=== PATIENT | female | born 1955 | race Caucasian/White ===

== ENCOUNTER 2022-02-07 10:22 | Inpatient (IN) | payer MEDICARE ==
[~2022-02-07] VITALS: Ht 165.1 cm; Wt 63.5 kg
[2022-02-07] VITALS (17 sets, daily range): BP systolic 104–164; BP diastolic 40–79
[2022-02-07] MEDS ORDERED: ONDANSETRON 4MG INJ IVP ONE (12:00)
[2022-02-07] MEDS ORDERED: MORPHINE 2 MG SYG IVP ONE (12:00)
[2022-02-07 12:16] LABS: BASOPHILS % (AUTO) 0.2 % (0.0-5.0); EOSINOPHILS % (AUTO) 0.7 % (0.0-8.0); HEMATOCRIT 39.1 % (36-48); LYMPHOCYTES % (AUTO) 10.9 % (21.0-51.0); MEAN CORPUSCULAR HEMOGLOBIN 30.7 pg (27.0-33.0); MEAN CORPUSCULAR HGB CONC 33.2 g/dL (32.0-36.0); MEAN CORPUSCULAR VOLUME 92.4 fL (79-99); MONOCYTES % (AUTO) 7.4 % (3.0-13.0); NEUTROPHILS % (AUTO) 80.2 % (40.0-77.0); PLATELET COUNT (AUTO) 221 K/uL (130-400); RED BLOOD CELL COUNT(AUTO) 4.23 MIL/uL (4.00-5.50); RED CELL DISTRIBUTION WIDTH 13.3 % (11.0-15.5); WHITE BLOOD COUNT (AUTO) 9.4 K/uL (4.8-10.8)
[2022-02-07 12:42] LABS: CARBON DIOXIDE 31 mmol/L (21-32); CHLORIDE 101 mmol/L (101-111); CREATININE 0.9 mg/dL (0.5-1.5); GLOMERULAR FILTR. RATE CALC 66 mL/min (>60); GLUCOSE,RANDOM 90 mg/dL (70-105); POTASSIUM 3.9 mmol/L (3.5-5.1); SODIUM SERUM 139 mmol/L (136-145); UREA NITROGEN, BLOOD 15 mg/dL (7-18)
[2022-02-07 12:47] LABS: ALANINE AMINOTRANSFERASE 23 U/L (12-78); ALBUMIN 3.8 g/dL (3.5-5.0); ASPARTATE AMINOTRANSFERASE 23 U/L (10-37); TOTAL PROTEIN, SERUM 7.5 g/dL (6.0-8.3)
[2022-02-07 12:48] LABS: CRP QUANTITATIVE < 2.00 mg/L (0.00-9.0)
[2022-02-07] MEDS: 0.9%NACL 1000ML 1,000 ML IV SCH (14:29)
[2022-02-07] MEDS ORDERED: HYDROMORPHONE 0.5 MG SYG (0.5MG/0.5ML) IVP PRN ×2 (14:30)
[2022-02-07] MEDS ORDERED: ONDANSETRON 4MG INJ IV PRN (14:30)
[2022-02-07] MEDS ORDERED: ACETAMINOPHEN 325 MG TAB PO PRN ×2 (14:30)
[2022-02-07] MEDS ORDERED: ROPIVACAINE 0.5% 5MG/ML 30ML IJ ONE (16:38)
[2022-02-07] MEDS ORDERED: SUCCINYLCHOLINE CHLORIDE 20 MG/ML 10 ML VIAL ONE (16:39)
[2022-02-07] MEDS ORDERED: FENTANYL CITRATE PF 50 MCG/1 ML 2ML VIAL ONE ×2 (16:39→17:09)
[2022-02-07] MEDS ORDERED: ROCURONIUM 10MG/1ML SYR 10 MG/ML ML ONE (16:39)
[2022-02-07] MEDS ORDERED: PROPOFOL 10 MG/ML 20ML VIAL IV ONE (16:39)
[2022-02-07] MEDS ORDERED: GLYCOPYRROLATE 1 MG/5 ML SYRINGE ONE (18:28)
[2022-02-07] MEDS ORDERED: NEOSTIGMINE 5MG/5ML SYR IV ONE (18:28)
[2022-02-07] MEDS ORDERED: MEPERIDINE-PF 25 MG/ML SYG ONE (18:56)
[2022-02-07] MEDS: FAMOTIDINE 20MG VIAL IV SCH (21:13)
[2022-02-07] MEDS: CEFAZOLIN SODIUM 1 GM VIAL IVP SCH (21:57)
[2022-02-08 00:25] VITALS: BP 103/68
[2022-02-08] MEDS: HYDROMORPHONE 0.5 MG SYG (0.5MG/0.5ML) IVP PRN ×3 (01:20→09:09)
[2022-02-08 04:04] VITALS: BP 97/50
[2022-02-08] MEDS: 0.9%NACL 1000ML 1,000 ML IV SCH (04:18)
[2022-02-08] MEDS: CEFAZOLIN SODIUM 1 GM VIAL IVP SCH (05:06)
[2022-02-08 07:30] VITALS: BP 101/61
[2022-02-08] MEDS: FAMOTIDINE 20MG VIAL IV SCH ×2 (09:09→20:30)
[2022-02-08 11:00] VITALS: BP 106/65
[2022-02-08] MEDS ORDERED: ACETAMINOPHEN WITH CODEINE 1 TAB TAB PO PRN ×2 (12:00)
[2022-02-08 14:05] LABS: HEMATOCRIT 36.4 % (36-48); MEAN CORPUSCULAR HEMOGLOBIN 31.2 pg (27.0-33.0); MEAN CORPUSCULAR VOLUME 94.5 fL (79-99); RED BLOOD CELL COUNT(AUTO) 3.85 MIL/uL (4.00-5.50); RED CELL DISTRIBUTION WIDTH 13.6 % (11.0-15.5); WHITE BLOOD COUNT (AUTO) 8.7 K/uL (4.8-10.8)
[2022-02-08 14:14] LABS: POTASSIUM 3.2 mmol/L (3.5-5.1)
[2022-02-08 16:30] VITALS: BP 103/69
[2022-02-08] MEDS ORDERED: POTASSIUM CHLORIDE 10% ELIXIR 20 MEQ/15 ML UDCUP PO PRN (18:30)
[2022-02-08] MEDS ORDERED: POTASSIUM CHLORIDE 20MEQ/100ML 100 ML IV PRN (18:30)
[2022-02-08] MEDS ORDERED: LIDOCAINE HCL-MPF 1% 2ML VIAL IV PRN (18:30)
[2022-02-08] MEDS ORDERED: ALEN70TA80 PO (20:29)
[2022-02-08] MEDS ORDERED: LEVO75TA10 PO (20:29)
[2022-02-08] MEDS ORDERED: LEVO50TA11 PO (20:29)
[2022-02-08] MEDS: KCL 20 MEQ ERTAB PO PRN ×2 (20:30→21:17)
[2022-02-08 20:55] VITALS: BP 103/77
[2022-02-08] MEDS: HYDROMORPHONE 1 MG INJ IVP PRN (21:17)
[2022-02-09 00:45] VITALS: BP 122/71
[2022-02-09] MEDS: HYDROMORPHONE 1 MG INJ IVP PRN (01:48)
[2022-02-09 04:05] VITALS: BP 132/73
[2022-02-09] MEDS: LACTULOSE 20 GM/30 ML UDCUP PO PRN ×2 (06:09→09:12)
[2022-02-09 06:24] LABS: BASOPHILS % (AUTO) 0.4 % (0.0-5.0); EOSINOPHILS % (AUTO) 1.7 % (0.0-8.0); HEMATOCRIT 32.8 % (36-48); LYMPHOCYTES % (AUTO) 12.6 % (21.0-51.0); MEAN CORPUSCULAR HEMOGLOBIN 30.9 pg (27.0-33.0); MEAN CORPUSCULAR HGB CONC 32.9 g/dL (32.0-36.0); MONOCYTES % (AUTO) 13.2 % (3.0-13.0); NEUTROPHILS % (AUTO) 71.6 % (40.0-77.0); PLATELET COUNT (AUTO) 175 K/uL (130-400); RED BLOOD CELL COUNT(AUTO) 3.49 MIL/uL (4.00-5.50); RED CELL DISTRIBUTION WIDTH 13.6 % (11.0-15.5); WHITE BLOOD COUNT (AUTO) 7.5 K/uL (4.8-10.8)
[2022-02-09 06:38] LABS: CREATININE 0.8 mg/dL (0.5-1.5); POTASSIUM 3.7 mmol/L (3.5-5.1)
[2022-02-09] MEDS: KCL 20 MEQ ERTAB PO PRN (06:42)
[2022-02-09 07:04] VITALS: BP 124/74
[2022-02-09] MEDS: FAMOTIDINE 20MG VIAL IV SCH (09:13)
== END 2022-02-09 15:30 | DRG 494 ==
LOC: EDH 10:22 → EDHIP 13:26 → OBSVTOIN 14:06 → 4DH 20:40 → 4AH 02-08 17:09
PROVIDERS: ADMIT Internal Medicine; ATTEND Internal Medicine
PROC: 0QSH04Z Reposition Left Tibia with Internal Fixation Device, Open Approach (ICD-10-PCS; 2022-02-07)
PROC: 0QSK04Z Reposition Left Fibula with Internal Fixation Device, Open Approach (ICD-10-PCS; principal; 2022-02-07 16:38)
DX: S82.842A Displaced bimalleolar fracture of left lower leg, initial encounter for closed fracture (principal); S92.351A Displaced fracture of fifth metatarsal bone, right foot, initial encounter for closed fracture; E78.00 Pure hypercholesterolemia, unspecified; Z20.822 Contact with and (suspected) exposure to COVID-19; W18.39XA Other fall on same level, initial encounter; I10 Essential (primary) hypertension; Z85.850 Personal history of malignant neoplasm of thyroid; Y93.89 Activity, other specified; Y92.89 Other specified places as the place of occurrence of the external cause; Y99.8 Other external cause status
CPT/HCPCS: 36415; 71045; 73590; 73610; 73630; 80048; 80053; 83735; 84484; 85025; 85027; 86140; 87635; 93005; 97039; C9803; G0378; J0330; J0690; J1170; J2175; J2405; J2704; J2710; J2795; J3010; J3490; J7030